=== PATIENT | male | born 1970 | race Asian ===

== ENCOUNTER 2024-01-22 07:09 | Day surgery (SDC) | payer BC ==
[2024-01-22] VITALS (9 sets, daily range): BP systolic 82–141; BP diastolic 69–103; PULSE 64–77; RESP 12; TEMP 98.2; O2SAT 94–100
[~2024-01-22] VITALS: Ht 182.9 cm; Wt 112.1 kg
[2024-01-22] MEDS ORDERED: METO100T14 PO ×2 (08:06)
[2024-01-22] MEDS ORDERED: FLEC100T PO (08:06)
[2024-01-22] MEDS ORDERED: APIX5TAB3 PO (08:06)
[2024-01-22] MEDS ORDERED: DIGO125T2 PO (08:07)
[2024-01-22] MEDS ORDERED: SILD100T70 PO (08:08)
[2024-01-22 08:14] LABS: BASOPHILS % (AUTO) 0.4 % (0-1); EOSINOPHILS # (AUTO) 0.1 X10'3 (0-0.9); EOSINOPHILS % (AUTO) 1.3 % (0-6); HEMATOCRIT 56.1 % (42.0-52.0); LYMPHOCYTES # (AUTO) 1.4 X10'3 (1.1-4.8); LYMPHOCYTES % (AUTO) 21.1 % (21-51); MEAN CORPUSCULAR HGB CONC 33.2 g/dL (33.0-36.5); MEAN CORPUSCULAR VOLUME 84.5 FL (78-98); MONOCYTES # (AUTO) 0.6 X10'3 (0-0.9); NEUTROPHILS # (AUTO) 4.4 X10'3 (1.8-7.7); NEUTROPHILS % (AUTO) 68.2 % (42-75); PLATELET COUNT 137 X10'3 (140-440); RED BLOOD COUNT 6.64 X10'6 (4.70-6.10); RED CELL DISTRIBUTION WIDTH 16.6 % (11.5-14.5); WHITE BLOOD COUNT 6.5 X10'3 (4.5-11.0)
[2024-01-22 08:16] LABS: HEMOGLOBIN 18.6 g/dl (14.0-17.9)
[2024-01-22 08:21] LABS: ALBUMIN 3.6 G/DL (3.4-5.0); ANION GAP 7 (8-16); BLOOD UREA NITROGEN 16 MG/DL (7-18); BUN/CREATININE RATIO 14.4 (10.0-20.0); CALCIUM 8.8 MG/DL (8.5-10.1); CHLORIDE 103 MMOL/L (99-107); CREATININE 1.11 MG/DL (0.60-1.10); GLUCOSE 106 MG/DL (70-104); MAGNESIUM 1.8 MG/DL (1.5-2.4); POTASSIUM 4.1 MMOL/L (3.5-5.1); SODIUM 137 MMOL/L (135-145); TOTAL CARBON DIOXIDE 27.3 MMOL/L (24-32); eCRCL 84 ML/MIN; eGFR 69 ML/MIN
[2024-01-22 08:22] LABS: INR 1.1 INR; PROTHROMBIN TIME 11.6 SECONDS (9.0-12.0)
[2024-01-22] MEDS: normal saline 1000ml 1,000 ML IV SCH (09:18)
[2024-01-22] MEDS: MIDAZolam 1mg/ml 10ml vial IV ONE (09:18)
[2024-01-22] MEDS: fentaNYL/PF 50MCG/1 ML 2ML syringe IV ONE (09:18)
== END 2024-01-22 10:15 | disposition home or self-care (01) ==
LOC: SSTAY O 07:09
PROVIDERS: ATTEND Internal Medicine Cardiovascular Disease
DX: I48.91 Unspecified atrial fibrillation (principal); I49.1 Atrial premature depolarization; I45.2 Bifascicular block; I10 Essential (primary) hypertension; G47.30 Sleep apnea, unspecified; Z79.890 Hormone replacement therapy; Z79.01 Long term (current) use of anticoagulants; Z79.899 Other long term (current) drug therapy; Z98.890 Other specified postprocedural states
CPT/HCPCS: 36415; 80048; 83735; 85025; 85610; 92960; 93005; J2250; J3010; J7030

== ENCOUNTER 2024-06-07 10:53 | Day surgery (SDC) | payer BC ==
[2024-06-07] VITALS (13 sets, daily range): BP systolic 102–139; BP diastolic 63–97; PULSE 54–73; RESP 12–19; TEMP 98.4; O2SAT 94–100
[~2024-06-07] VITALS: Ht 182.9 cm; Wt 112.7 kg
[~2024-06-07 10:53] MED LIST: APIX5TAB3 PO; DIGO125T2 PO; FLEC100T PO; METO100T14 PO; SILD100T70 PO
[2024-06-07] MEDS ORDERED: DOXY-224 PO (11:28)
[2024-06-07] MEDS ORDERED: DOFE125C4 PO (11:28)
[2024-06-07 11:44] LABS: BASOPHILS % (AUTO) 0.7 % (0-1); EOSINOPHILS # (AUTO) 0.1 X10'3 (0-0.9); EOSINOPHILS % (AUTO) 1.4 % (0-6); HEMATOCRIT 59.2 % (42.0-52.0); LYMPHOCYTES # (AUTO) 1.5 X10'3 (1.1-4.8); LYMPHOCYTES % (AUTO) 26.8 % (21-51); MEAN CORPUSCULAR HEMOGLOBIN 31.2 PG (27.0-31.0); MEAN CORPUSCULAR HGB CONC 34.3 g/dL (33.0-36.5); MEAN PLATELET VOLUME 9.2 FL (7.4-10.4); MONOCYTES # (AUTO) 0.5 X10'3 (0-0.9); MONOCYTES % (AUTO) 8.8 % (2-12); NEUTROPHILS # (AUTO) 3.5 X10'3 (1.8-7.7); NEUTROPHILS % (AUTO) 62.3 % (42-75); PLATELET COUNT 146 X10'3 (140-440); RED BLOOD COUNT 6.51 X10'6 (4.70-6.10); RED CELL DISTRIBUTION WIDTH 13.7 % (11.5-14.5); WHITE BLOOD COUNT 5.7 X10'3 (4.5-11.0)
[2024-06-07 11:50] LABS: INR 1.1 INR; PROTHROMBIN TIME 11.4 SECONDS (9.0-12.0)
[2024-06-07 11:58] LABS: HEMOGLOBIN 20.3 g/dl (14.0-17.9)
[2024-06-07] MEDS: normal saline 1000ml 1,000 ML IV SCH (12:12)
[2024-06-07] MEDS: fentaNYL/PF 50MCG/1 ML 2ML syringe IV ONE (12:12)
[2024-06-07] MEDS: MIDAZolam 1mg/ml 10ml vial IV ONE (12:12)
[2024-06-07 13:46] LABS: ALBUMIN 4.1 G/DL (3.4-5.0); ANION GAP 7 (8-16); BLOOD UREA NITROGEN 19 MG/DL (7-18); BUN/CREATININE RATIO 19.2 (10.0-20.0); CALCIUM 8.9 MG/DL (8.5-10.1); CHLORIDE 104 MMOL/L (99-107); CREATININE 0.99 MG/DL (0.60-1.10); GLUCOSE 115 MG/DL (70-104); POTASSIUM 4.5 MMOL/L (3.5-5.1); SODIUM 138 MMOL/L (135-145); eCRCL 93 ML/MIN; eGFR 78 ML/MIN
== END 2024-06-07 13:30 | disposition home or self-care (01) ==
LOC: SSTAY O 10:53
PROVIDERS: ATTEND Internal Medicine Cardiovascular Disease
DX: I48.91 Unspecified atrial fibrillation (principal); I10 Essential (primary) hypertension; G47.30 Sleep apnea, unspecified; Z79.899 Other long term (current) drug therapy; Z98.890 Other specified postprocedural states; Z72.89 Other problems related to lifestyle
CPT/HCPCS: 80048; 85025; 85610; 92960; 93005; J2250; J3010; J7030